=== PATIENT | male | born 1985 | race Two or more races ===

== ENCOUNTER 2025-08-27 18:53 | Emergency (ER) | payer MEDICAID, SELFPAY ==
[2025-08-27 18:54] VITALS: BP 114/82; PULSE 95; RESP 18; TEMP 36.7; O2SAT 98; BMI 20.3
[2025-08-27 19:05] VITALS: BP 122/87; PULSE 95; RESP 18; TEMP 36.8; O2SAT 95
--- NOTE | 2025-08-27 19:11 | EDNOTE_ITS ---
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 According to the law enforcement on the [facility] to [facility] patient was acting normal, with the patient was evaluated by a nurse [facility], patient was acting confused. On my initial evaluation patient answer question appropriately, alert oriented x 3. Patient is asking if I can give him a sandwich and drink. Having eaten for the last 24 hours. Patient denies any complaints. Related Information Home Medications ?Medication ?Instructions ?Recorded ?Confirmed Unobtainable 08/29/23 08/29/23 Allergies Allergy/AdvReac Type Severity Reaction Status Date / Time No Known Allergies Allergy Verified 08/27/25 19:05 Review of Systems Review of Systems Narrative Review of Systems: Review of system reviewed and within normal limits except mentioned in HPI ED Exam Narrative Physical exam: VITAL SIGNS: Reviewed. GENERAL APPEARANCE: Alert and interactive, follows commands, no acute distress, HEAD AND FACE: Non-traumatic. ENT: PERRL, pink conjunctivitis, eyelid no trauma, Mucous membrane moist. NECK: Supple, nontender, no nuchal rigidity. CHEST: No tenderness, no crepitus, no paradoxical movement, no retractions. LUNGS: Clear, well ventilated, symmetric, no rales, no wheezing, no ronchi, no stridor, good breath sounds bilaterally. HEART: Regular rate, regular rhythm, no murmur, no gallops. ABDOMEN: Soft, positive bowel sounds, nondistended, no guarding, nontender, no rebound, no masses, RECTAL: Deferred. GENITAL: Deferred. NEUROLOGICAL: Gross motor function intact sensory function intact, Appropriate for age. MUSCULOSKELETAL: low back nontender, full range of motion. EXTREMITIES: Nontender, full range of motion. SKIN: Color pink, dry, no rash, no lacerations, no abrasions, no contusions. LYMPHATICS: Deferred. 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 According to the law enforcement [facility] patient was acting normal, with the patient was evaluated [facility] a [facility], patient was acting confused. On my initial evaluation patient answer question appropriately, alert oriented x 3. Patient is asking if I can give him a sandwich and drink. Having eaten for the last 24 hours. Patient denies any complaints. Patient was noted to be ambulatory unaided, I gave him him a sandwich and was able to drink milk and finish the whole sandwich. He is not having any complaints. Alert oriented x 3 Patient is medically cleared for incarceration Patient data External records reviewed:: None Clinical information provided by:: patient Social determinants that could affect healthcare access:: none Patient has the following chronic illnesses:: History of seizure How is presenting disease/condition affected by chronic disease/condition?: ex acerbated by Evaluation data The following diagnostics were reviewed and interpreted by me:: other (specify) (None) Lab and/or radiology exams considered but not ordered:: None Interpretation Summary: None Medications / Prescriptions Medications or Prescriptions considered but not ordered:: None Medication administrations:: None Consultations Consultation(s) initiated? (list below): No Diagnosis Medical Clearance Differential Diagnosis: other (Medical clearance for incarceration) Most likely diagnosis given after review of the tests above:: Medical clearance for incarceration Admission Indicated Admission indicated?: not indicated Admission Request Was there a request for admission?: No Disposition Plan Disposition Plan: Discharge Discharge Attestation Discharge Attestation: Patient condition: Stable Discharge Plan Plan Patient Disposition: HOME (Self Care) Discharge Disposition comment: Stable Prescriptions/Referrals Prescriptions/Med Rec: No Action Unobtainable Problem List Clinical Impression: Medical clearance for incarceration Patient/Caregiver Discharge Instructions Discharge Activity: activity as tolerated Education Materials: Reducing Your Health Risks ... Additional Instructions: Thank you for the opportunity for serving you today. You are stable for discharged . You are medically cleared for incarceration Print Language: Welsh Stand Alone Forms: Jayshree Henao Info., Patient Portal Info Letter PA/MATTRESS FILLING MACHINE TENDER Supervising Physician PA/MATTRESS FILLING MACHINE TENDER Supervising Physician: MD Jen
== END 2025-08-27 19:23 | disposition home or self-care (01) ==
LOC: SERX 19:58
PROVIDERS: Emergency Provider Emergency Medicine
DX: Z02.89 Encounter for other administrative examinations (principal); R41.0 Disorientation, unspecified
CPT/HCPCS: 99281